=== PATIENT | female | born 1980 | race Caucasian/White ===

== ENCOUNTER 2017-09-14 12:02 | Emergency (ER) | payer BC, OTHER, SELFPAY ==
[2017-09-14 12:56] LABS: #Basophils 0.1 thou/uL (0.0-0.2); #Eosinphils 0.1 thou/uL (0.0-0.7); #Lymphocytes 1.7 thou/uL (1.20-3.40); #Monocytes 0.4 thou/uL (0.11-0.59); #Neutrophils 4.2 thou/uL (1.40-6.50); %Basophils 0.8 % (0.0-1.0); %Eosinophils 1.9 % (0.0-10.0); %Lymphocytes 26.4 % (21.0-51.0); %Monocytes 6.4 % (0.0-10.0); %Neutrophils 64.6 % (42.0-75.0); Hemoglobin 14.8 g/dL (12.0-16.0); Mean Corpuscular HGB CONC 34.6 g/dL (32.0-36.0); Mean Corpuscular Hemoglobin 32.5 pg (27.0-31.0); Platelet Count 261 thou/uL (130-400); Red Blood Cell (RBC) Count 4.54 mill/uL (4.20-5.40); White Blood Cell (WBC) Count 6.5 thou/uL (4.8-10.8)
[2017-09-14 13:11] LABS: Bilirubin Negative (Negative); Blood, Urine Negative (Negative); Clarity CLOUDY (Clear); Glucose, Urine (Dipstick) Negative (Negative); Leukocyte Moderate (Negative); Nitrite Negative (Negative); Protein, Urine (Dipstick) Negative (Neg-Trace); Specific Gravity, Urine 1.007 (1.002-1.036); Urobilinogen 0.2 mg/dL (0.2-1.0)
[2017-09-14 13:13] LABS: Bacteria/HPF Rare-Few HPF (None Seen); Hyaline Casts/LPF 0-3 HYALINE CAST LPF (0-3 Hyaline); Pathc Cast-AUWi Flag 0.94 (0-2.49)
[2017-09-14 13:17] LABS: Yeast-AUWi Flag 38.6 (0-25.0)
[2017-09-14 13:17] LABS: ALT (SGPT) 14 U/L (8-55); AST (SGOT) 13 U/L (5-34); Albumin 4.4 g/dL (3.5-5.0); Alkaline Phosphatase 53 U/L (40-150); Anion Gap 11 mmol/L (10-20); BUN (Urea Nitrogen) 15 mg/dL (7.0-18.7); Bilirubin, Total 0.6 mg/dL (0.2-1.2); Calc. Creatinine Clearance 0 mL/min (70-130); Carbon Dioxide 24 mmol/L (22-29); Chloride 104 mmol/L (98-107); Estimated GFR-MDRD 89; Glucose 87 mg/dL (70-105); Lipase 26 U/L (8-78); Potassium 3.8 mmol/L (3.5-5.1); Protein, Total 7.4 g/dL (6.0-8.3); Sodium 135 mmol/L (136-145)
[2017-09-14 13:25] LABS: RBC/HPF None Seen HPF (0-3); Yeast-All Forms None Seen HPF (None Seen)
[2017-09-14 14:20] LABS: Pregnancy Test - Urine (BHCG) Negative (Negative); Pregu Control Background? CLEAR/WHITE (CLR/WHITE); Pregu Control Bar Appear? YES (CONTROL BAR); Specific Gravity 1.007 (1.002-1.036)
[2017-09-14] MEDS ORDERED: Ondansetron PF 4 MG/2 ML Vial ONE (14:27)
--- NOTE | 2017-09-14 15:16 | CT ---
CT ABDOMEN AND PELVIS WITH IV CONTRAST: HISTORY: Abdominal pain. FINDINGS: Lung bases are clear. The liver, spleen, kidneys, adrenal glands, and pancreas have a normal CT appe arance. Small hiatal hernia is apparent. No free fluid or free air are apparent. Urinary bladder i s within normal limits. Intrauterine contraceptive device is apparent within the endometrial cavity. Lack of oral contrast limits evaluation of the bowel. There is no evidence of obstruction. Appendix is not inflamed. IMPRESSION: No significant abnormalities are demonstrated. POS: MARILYNH
--- NOTE | 2017-09-14 15:56 | ULT ---
PELVIC SONOGRAM: (Transabdominal and transvaginal imaging with duplex evaluation) Date: 09/14/17 HISTORY: Pelvic pain. FINDINGS: Urinary bladder is unremarkable. Uterus has a heterogeneous echotexture and is 9.1 cm. Endometrium co ntains an echogenicity with the appearance of an intrauterine contraceptive device. An oval cystic st ructure within the posterior aspect of the cervix likely represents a nabothian cyst. It is 0.8 cm gr eatest diameter. Endometrium is 0.4 cm. No free fluid is apparent within the pelvis. Right ovary is 2.3 cm and left ovary is 1.7 cm. Each has a normal appearance and demonstrates good co maine and spectral Doppler flow. IMPRESSION: IUD within the endometrial cavity. No significant abnormalities are demonstrated. POS: LISA
[2017-09-14] MEDS ORDERED: Iopamidol 370 76% 100 ML VIAL ONE (17:21)
== END 2017-09-14 16:44 | disposition home or self-care (01) ==
LOC: ERS 12:02
DX: R10.31 Right lower quadrant pain (principal); F41.9 Anxiety disorder, unspecified; F32.9 Major depressive disorder, single episode, unspecified
CPT/HCPCS: 36415; 74177; 76856; 80053; 81003; 81015; 81025; 83690; 85025; 96361; 96374; 96375; J2405

== ENCOUNTER 2017-11-19 09:53 | Outpatient (CLI) | payer OTHER ==
[2017-11-19 11:12] LABS: Mean Corpuscular HGB CONC 33.5 g/dL (32.0-36.0); Mean Corpuscular Hemoglobin 31.3 pg (27.0-31.0); Mean Corpuscular Volume 93.5 fl (81.0-99.0); Platelet Count 259 thou/uL (130-400); RBC Distribution Width 10.8 % (11.5-14.5); Red Blood Cell (RBC) Count 4.47 mill/uL (4.20-5.40); White Blood Cell (WBC) Count 5.6 thou/uL (4.8-10.8)
[2017-11-19 11:23] LABS: Bilirubin Negative (Negative); Blood, Urine Negative (Negative); Clarity CLEAR (Clear); Glucose, Urine (Dipstick) Negative (Negative); Leukocyte Moderate (Negative); Nitrite Negative (Negative); Protein, Urine (Dipstick) Negative (Neg-Trace); Specific Gravity, Urine 1.008 (1.002-1.036); Urobilinogen 0.2 mg/dL (0.2-1.0)
[2017-11-19 11:24] LABS: BHCG - Serum Negative (NEGATIVE); Pregs Control Background? CLEAR/WHITE (CLR/WHITE); Pregs Control Bar Appear? YES (CONTROL BAR)
[2017-11-19 11:31] LABS: Bacteria/HPF Rare-Few HPF (None Seen); Hyaline Casts/LPF 0-3 HYALINE CAST LPF (0-3 Hyaline); Pathc Cast-AUWi Flag 0.14 (0-2.49); Squamous Epithelial 0-3 HPF (0-3)
== END 2017-11-19 09:54 | disposition home or self-care (01) ==
LOC: LABBT 09:53
PROVIDERS: ATTEND Student in an Organized Health Care Education/Training Program
DX: Z01.812 Encounter for preprocedural laboratory examination (principal); R10.11 Right upper quadrant pain
CPT/HCPCS: 81001; 84703; 85027; 86850; 86900; 86901; 87086

== ENCOUNTER 2017-11-20 08:03 | Day surgery (SDC) | payer OTHER ==
[2017-11-19 10:18] VITALS: BMI 27.9
--- NOTE | 2017-11-20 00:18 | HP ---
DATE OF OPERATION: 11/20/2017 CHIEF COMPLAINT: Right lower quadrant pain. HISTORY OF PRESENT ILLNESS: This is a 37-year-old P1 with a history of progressively worsening right lower quadrant pain since 07/2017. She reports the pain was initially dull and achy; however, progressed to being severe, requiring multiple visits to the ER in August where the patient had no rmal pelvic ultrasound and CT scan. During this time, her was diagnosed with chlamydia. The patient was tested twice for this and tested negative and had a Mirena IUD in place. She was treate d for presumptive pelvic inflammatory disease due to this recent finding and she was treated sufficie ntly with 2 weeks of doxycycline and IM Rocephin. Following this, it did not improve the pain. She subsequently had her Mirena removed in September thinking it could possibly be embedded. This did not im prove her pain either. She has constant pain that she could describe as stabbing. She takes Tylenol #3 three times daily that does help the patient to be able to function. She describes the pain as r ight adnexal, radiating to back as well as right suprapubic. She denies this worsening with walking or causing change in gait. She does note that the pain worsens as the day goes on. Her most recent menstrual period did not make this pain worse. She does have increase in pain after intercourse; how ever, has not had intercourse since but one since the onset of pain. She denies any fever or change in bowel habits. She has a slight increase in her pain with a full bladder and a slight urinary freq uency. CURRENT MEDICATIONS: Bentyl 10 mg p.o. t.i.d. p.r.n., Lexapro 20 mg p.o. daily, Tylenol #3 p.o. q.8 hours, and ibuprofen 800 mg p.o. p.r.n. PAST MEDICAL HISTORY: Anxiety, depression. PAST SURGICAL HISTORY: x1, tonsils and adenoids. GYNECOLOGIC HISTORY: No abnormal Paps, no STDs. [employer]GER HISTORY: x1 at 35 weeks, preeclampsia, and spontaneous x1. SOCIAL HISTORY: Negative x3. ALLERGIES: PENICILLIN. REVIEW OF SYSTEMS: Negative except as noted in the HPI. PHYSICAL EXAMINATION: VITAL SIGNS: Blood pressure 128/82, weight is 195, pulse is 90. BMI is 28.0. GENERAL: No acute distress. CARDIAC: Regular rate and rhythm. LUNGS: Clear to auscultation bilaterally. ABDOMEN: Soft, nondistended, with tenderness in the right lower quadrant and right suprapubic region and tenderness over the right side of the pubic bone as well. EXTREMITIES: No edema, cyanosis, or clubbing. PELVIC: Deferred to the OR. ASSESSMENT AND PLAN: A 37-year-old P1 with persistent right lower quadrant pain, negative imag ing, and presumptive medical treatment, dispositioned for further workup, and diagnosis/treatment wit h laparoscopy, feel this could be related to endometriosis and I have discussed resection of endometr iosis if present and thorough evaluation of the pelvis. The patient also is amenable to right salpin go-oophorectomy if the right ovary is involved or adherent in anyway causing her pain. She does unde rstand that postoperatively endometriosis should be medically managed as well to increase symptom-amy e interval and she understands postoperative care. She will follow up with me in 2 weeks' postoperat ajrad time. Discussed postoperative pain control with ON-Q pain pump since the patient has a tolerance built to Tylenol #3 and we will also give postoperative Terrell. She will follow up with me in 2 week s' postoperative time. Discussed risk of surgery to include bleeding, infection, transfusion, damage to surrounding structures including bowel, bladder, ureter, blood vessels, and nerves. The patient understands and wished to proceed.
[2017-11-20] MEDS ORDERED: CEFAZOLIN/Water 2 GM/20 ML SYRINGE ONE (08:36)
[2017-11-20] MEDS ORDERED: Famotidine/PF 20 mg/2ml Vial ONE (08:36)
[2017-11-20] MEDS ORDERED: CeleCOXIB 100 MG CAP ONE (08:36)
[2017-11-20] MEDS ORDERED: Gabapentin 300 MG CAP ONE (08:36)
[2017-11-20] MEDS ORDERED: Promethazine HCl 25 MG/ML VIAL ONE (09:49)
[2017-11-20] MEDS ORDERED: Bupivacaine HCl 0.5%/Epinephrine 1:200,000/PF 30 ml Vial ONE (10:24)
[2017-11-20] MEDS ORDERED: Midazolam HCl 2 mg/2 ml Vial ONE (10:26)
[2017-11-20] MEDS ORDERED: Fentanyl 250 MCG/5 ML VIAL ONE (10:26)
[2017-11-20] MEDS ORDERED: Meperidine HCl/PF 25 MG/ML VIAL ONE (12:38)
[2017-11-20] MEDS ORDERED: Ondansetron ODT 8 MG TAB PO PRN (12:45)
[2017-11-20] MEDS ORDERED: HYDROcodone/Acetaminophen 5/325 mg Tablet PO PRN ×2 (12:46)
[2017-11-20] MEDS ORDERED: Fentanyl 100 MCG/2 ML VIAL ONE ×2 (12:46→13:30)
[2017-11-20] MEDS ORDERED: Ropivacaine 0.2% 550 ML 550 ML NERVE BLCK SCH (13:30)
[2017-11-20] MEDS ORDERED: PROPOFOL 200 MG/20 ML VIAL ONE (15:50)
[2017-11-20] MEDS ORDERED: Dexamethasone 20 MG/5 ML VIAL ONE (15:50)
[2017-11-20] MEDS ORDERED: Lidocaine 1% PF 5 ML VIAL ONE (15:50)
[2017-11-20] MEDS ORDERED: Glycopyrrolate 0.2 MG/ML 5 ML SYRINGE ONE (15:50)
--- NOTE | 2017-11-20 17:11 | OP ---
DATE OF OPERATION: 11/20/2017 PREOPERATIVE DIAGNOSIS: Right lower quadrant pain. POSTOPERATIVE DIAGNOSIS: Right lower quadrant pain. PROCEDURES: Robotic assisted diagnostic laparoscopy, resection of pelvic endometriosis and right oop horopexy. ATTENDING SURGEON: Josefa Ocampo M.D. DESK [employer]ERKS SUPERVISOR SURGEON: Nikolai Bustos M.D. ANESTHESIA: General endotracheal. ESTIMATED BLOOD LOSS: 20 mL. INTRAVENOUS FLUIDS: 1200 crystalloid. URINE OUTPUT: 100 mL of clear urine. PATHOLOGY: 1. Left fallopian tube cyst. 2. Right pelvic peritoneum. FINDINGS: The uterus is normal appearing. The right and left ovaries were normal appearing. The merged with [facility] pelvic sidewall has some scattered very small pinpoint red implants as well as some white discolo ration. There were several bands along the right pelvic sidewall from the uterosacral ligament to th e ureter as well as more medial along one of these bands was a very deep cleft that was in the right ovarian fossa. The ovary was wedged down and this cleft upon initial examination and there was no sc arring of the ovary to the area. However, the peritoneum did appear very erythematous once the ovary was removed out of the area. The left pelvis was within normal limits. The appendix was normal. T he anterior cul-de-sac was normal as well as the posterior cul-de-sac. The upper abdomen was also wi thin normal limits. The colon was normal appearing. COMPLICATIONS: None. DRAINS: None. OPERATIVE TECHNIQUE: The patient was taken to the operating room where general anesthesia was obtain ed without difficulty. The patient was prepped and draped in a sterile fashion in the dorsal lithoto my position. A Villegas catheter was placed in the bladder. A speculum was placed in the vagina. The anterior lip of the cervix was grasped with a single tooth tenaculum and the diagnostic VCare was ins erted to the uterine fundus. The balloon was inflated. Instruments removed out of the vagina. Legs were placed in low lithotomy. Attention was turned to the abdomen. A 12 mm umbilical incision was made and carried down with knife after infiltrating with 0.5% Marcaine with epinephrine. The Veress needle was passed into the abdomen noting an opening pressure of 2 mmHg. Pneumoperitoneum was obtain ed. The Veress needle was removed. A 12 mm trocar was advanced into the abdomen and confirmed place ment with the robotic camera. Steep Trendelenburg was obtained. The right and left lower quadrant r obotic trocars were placed after infiltrating with 0.5% Marcaine with epinephrine under direct visual ization. The robot was then docked. The right robotic arm contained the monopolar scissors, left ro botic arm contained fenestrated bipolar. At that time, thorough exploration of the abdomen and pelvi s was performed. The upper abdomen was examined. The liver edge was within normal limits and gallbl adder was normal. There were no adhesions, diaphragm normal appearing. The appendix is not in the r ight lower quadrant. No inflammation noted. The uterus did have somewhat mottled appearance to it. However, presumed to be within normal limits and normal contours. The fallopian tubes were normal. There was a small cyst of Morgagni off the left fallopian tube that was amputated with cautery and s ent for pathology. The ovaries bilaterally were normal with the exception of the right ovary being w edged down and a cleft in the right ovarian fossa and the borders of this cleft were the external jena ac artery and obturator nerve. Secondary to the boundaries of this defect and the peritoneum being s o vital, no plication was performed; however, the peritoneum was stripped and this was performed init ially incising on peritoneum close to the left uterosacral and dissecting the retroperitoneum off of the peritoneum sharply and with cautery to achieve hemostasis. The ureter was dissected out carefull y and ensuring that dissection was superficial and the boundaries of the perineal resection included left uterosacral ligament, superiorly just above the ureter over to the cleft in the ovarian fossa th at was dissected carefully out, taking extra care as the iliac artery was nearby and this included th e two bands, scar tissue and the red pinpoint spots as well as the white discoloration in the periton eum. Hemostasis was achieved. The ureter was noted. The entire time continued to peristalse. Hemo stasis was noted and irrigation of this area was performed. At that time, to prevent the ovary from reentering into the cleft, possibly causing the patient's pain, the decision was made to perform ooph oropexy. The right ovary was elevated and 2-0 Vicryl was used to throw a stitch through the ovary ti ed that down and then fixed this to the pelvic sidewall lateral to the infundibulopelvic ligament. T his was tied down and secured. The needle was removed out of the abdomen. Hemostasis was noted. In terceed was then placed over the right pelvic peritoneum resection and small amount of irrigation was also placed. A single lumen ON-Q pump was then placed in the mid abdomen midline and catheter threa ded along the surgical site and test dose was performed. The introducer was removed and all instrume nts were removed from the abdomen and the robot was undocked. All ports were removed and pneumoperit oneum was released. The fascia of the umbilical port was closed with 0 Vicryl in [id number] fas hion. The skin was closed with 4-0 Monocryl in subcuticular fashion. Dermabond was applied. The ma nipulator was removed out of the uterus. All instruments were removed out of the vagina. The patien t tolerated procedure well. Sponge and needle counts were correct x2. The patient was taken to [facility] very in stable condition. Patient received Ancef 2 grams prior to procedure.
== END 2017-11-20 15:38 | disposition home or self-care (01) ==
LOC: SDC 08:03
PROVIDERS: ATTEND Student in an Organized Health Care Education/Training Program
PROC: 0WBH4ZX Excision of Retroperitoneum, Percutaneous Endoscopic Approach, Diagnostic (ICD-10-PCS; principal; 2017-11-20)
PROC: 0UQ04ZZ Repair Right Ovary, Percutaneous Endoscopic Approach (ICD-10-PCS; principal; 2017-11-20)
PROC: 0UB64ZZ Excision of Left Fallopian Tube, Percutaneous Endoscopic Approach (ICD-10-PCS; principal; 2017-11-20)
DX: N83.8 Other noninflammatory disorders of ovary, fallopian tube and broad ligament (principal); F41.9 Anxiety disorder, unspecified; F32.9 Major depressive disorder, single episode, unspecified; Z79.899 Other long term (current) drug therapy; Z88.0 Allergy status to penicillin
CPT/HCPCS: 81001; 84703; 85027; 86850; 86900; 86901; 87086; 88304; 88305; 96374; A4306; J0670; J1100; J2001; J2175; J2250; J2550; J2704; J2795; J3010; S0028

== ENCOUNTER 2017-12-14 13:32 | Outpatient (CLI) | payer OTHER ==
--- NOTE | 2017-12-14 17:10 | MRI ---
MR OF THE PELVIS WITHOUT CONTRAST: 12/14/17 INDICATION: Right lower quadrant abdominal and pelvic pain. Concern for an osseous abnormality in the right hemip kendra. TECHNIQUE: Multiplanar and multisequence MR images were obtained of the pelvis without IV contrast. No radiograp hic comparisons are available. Comparisons are made with the prior CT of the abdomen and pelvis dated 09/14/17. 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 No acute fracture is evident. The righ t hip girdle musculature appears normal. Small amount of edema is seen overlying the lateral aspect o f the right greater trochanter without a visible tear of the abductor musculature. The rectus femoris and right hamstring origin appears within normal limits. No enlarged lymph nodes are evident. No ing uinal hernia is identified. Portions of the rectus-abductor longus aponeurotic complex appears intact . There is a small outpouching of joint fluid seen along the anterior medial aspect of the inferior r ight hip joint likely related to a small periarticular ganglion measuring 1.1 cm. No definite labral tear is evident. Ligamentum teres is intact. No joint effusion is evident. There are small Nabothian cysts within the cervix. No free fluid is evident. The visualized adnexa, uterus, bladder and perirec oliverio soft tissues appear within normal limits. IMPRESSION: 1. Mild amount of edema overlying the right greater trochanter can be related to a mild trochant braden bursitis. 2. No acute fracture is demonstrated. 3. No inguinal hernia demonstrated. No lymphadenopathy is noted. POS: OFF
== END 2017-12-14 13:33 | disposition home or self-care (01) ==
LOC: SCSMRI 13:32
PROVIDERS: ATTEND Student in an Organized Health Care Education/Training Program
DX: R10.31 Right lower quadrant pain (principal); M25.559 Pain in unspecified hip; R60.0 Localized edema
CPT/HCPCS: 72195

== ENCOUNTER 2018-01-25 18:40 | Emergency (ER) | payer OTHER ==
[2018-01-25 19:21] LABS: Bilirubin Negative (Negative); Blood, Urine Trace (Negative); Clarity Clear (Clear); Glucose, Urine (Dipstick) Negative (Negative); Leukocyte Negative (Negative); Nitrite Negative (Negative); Protein, Urine (Dipstick) Negative (Neg-Trace); Specific Gravity, Urine 1.015 (1.005-1.030); Urobilinogen 0.2 mg/dL (0.2-1.0)
[2018-01-25 19:23] LABS: Bacteria/HPF Rare-Few HPF (None Seen); RBC/HPF 0-3 HPF (0-3); WBC/HPF None Seen HPF (0-3)
[2018-01-25] MEDS ORDERED: Ketorolac Tromethamine 30 MG/ML VIAL ONE (19:37)
[2018-01-25] MEDS ORDERED: Ondansetron ODT 4 MG TAB ONE (19:37)
[2018-01-25 19:54] LABS: Pregnancy Test - Urine (BHCG) Negative (Negative); Pregu Control Background? CLEAR/WHITE (CLR/WHITE); Pregu Control Bar Appear? YES (CONTROL BAR); Specific Gravity 1.015 (1.002-1.036)
[2018-01-25 20:00] LABS: #Basophils 0.1 thou/uL (0.0-0.2); #Eosinphils 0.1 thou/uL (0.0-0.7); #Lymphocytes 2.4 thou/uL (1.20-3.40); #Monocytes 0.5 thou/uL (0.11-0.59); #Neutrophils 3.8 thou/uL (1.40-6.50); %Basophils 1.1 % (0.0-1.0); %Eosinophils 2.1 % (0.0-10.0); %Lymphocytes 34.1 % (21.0-51.0); %Neutrophils 55.7 % (42.0-75.0); Hemoglobin 14.5 g/dL (12.0-16.0); Mean Corpuscular HGB CONC 34.7 g/dL (32.0-36.0); Mean Corpuscular Hemoglobin 30.1 pg (27.0-31.0); Mean Corpuscular Volume 86.8 fL (78.0-98.0); Mean Platelet Volume 8.8 fL (7.4-10.4); Platelet Count 263 thou/uL (130-400); RBC Distribution Width 10.3 % (11.5-14.5); Red Blood Cell (RBC) Count 4.82 mill/uL (4.20-5.40); White Blood Cell (WBC) Count 6.9 thou/uL (4.8-10.8)
[2018-01-25 20:14] LABS: ALT (SGPT) 14 U/L (8-55); AST (SGOT) 14 U/L (5-34); Albumin 4.4 g/dL (3.5-5.0); Alkaline Phosphatase 52 U/L (40-150); Anion Gap 16 mmol/L (10-20); BUN (Urea Nitrogen) 14 mg/dL (7.0-18.7); Bilirubin, Total 0.2 mg/dL (0.2-1.2); Calc. Creatinine Clearance 0 mL/min (70-130); Calcium 9.6 mg/dL (7.8-10.44); Carbon Dioxide 22 mmol/L (22-29); Chloride 106 mmol/L (98-107); Estimated GFR-MDRD 82; Globulin 3.1 g/dL (2.4-3.5); Glucose 88 mg/dL (70-105); Lipase 28 U/L (8-78); Protein, Total 7.5 g/dL (6.0-8.3); Sodium 140 mmol/L (136-145)
[2018-01-25] MEDS ORDERED: HYDROcodone/Acetaminophen 10/325 mg Tablet ONE (20:44)
== END 2018-01-25 20:52 | disposition home or self-care (01) ==
LOC: SCSER 18:40
DX: N80.0 Endometriosis of uterus (principal); F41.9 Anxiety disorder, unspecified; F32.9 Major depressive disorder, single episode, unspecified
CPT/HCPCS: 80053; 81003; 81015; 81025; 82150; 83690; 85025; 96372; J1885; Q0162

== ENCOUNTER 2019-01-20 07:03 | Outpatient (CLI) | payer BC ==
--- NOTE | 2019-01-20 08:02 | MRI ---
EXAM: Cervical spine MRI Without contrast. HISTORY: Neck pain with radiation down left arm COMPARISON: None. FINDINGS: Multiplanar multisequence MRI examination of the cervical spine is performed. Mild generalized disc desiccation changes and ligament and facet hypertrophic changes. No significant malalignment. No evidence for significant abnormal marrow signal. No evidence for spinal cord mass or abnormal signal within the spinal cord. Visualized lower brain and neck soft tissues show no significant acute process. C2-C3 level: No significant central canal, lateral recess, or foraminal stenosis. C3-C4 level: No significant central canal, lateral recess, or foraminal stenosis. C4-C5 level: No significant central canal, lateral recess, or foraminal stenosis. C5-C6 level: Disc osteophytosis with mild narrowing of the ventral lateral recesses bilaterally with slight foraminal narrowing but no significant central cord compression. C6-C7 level: No significant central canal, lateral recess, or foraminal stenosis. C7-T1 level: No significant central canal, lateral recess, or foraminal stenosis. IMPRESSION: Focal disc osteophytosis at C5-C6 with mild lateral recess and foraminal stenosis without significant central canal stenosis or cord compression.
== END 2019-01-20 07:04 | disposition home or self-care (01) ==
LOC: SCSMRI 07:03
PROVIDERS: ATTEND Nurse Practitioner Family
DX: M54.12 Radiculopathy, cervical region (principal); M48.02 Spinal stenosis, cervical region; M25.78 Osteophyte, vertebrae
CPT/HCPCS: 72141